=== PATIENT | female | born 1980 | race Caucasian/White ===

== ENCOUNTER 2019-05-09 17:50 | Emergency (ER) | payer MEDICAID, OTHER ==
[~2019-05-09] VITALS: Ht 170.2 cm; Wt 68.0 kg
--- NOTE | 2019-05-09 18:18 | ED Abdominal Pain ---
General Chief Complaint: Trauma-Non Activation Stated Complaint: LOW ABD/ GROIN PAIN, HEADACHE Source of Information: Patient, RN Notes Reviewed Exam Limitations: No Limitations History of Present Illness Date Seen by Provider: May 09, 2019 Time Seen by Provider: 18:18 Initial Comments Patient presents c/ c/o worsening left groin pain and swelling p/ tripping and falling on 05/05/19. States she landed on a printer in her left groin area. Pain worse c/ movement, palpation, & walking. Has now developed some bruising and fullness in the area now as well. Only other injury is to her left great toe that is painful. Timing/Duration: 4-5 Days Severity/Quality: Moderate (5/10), Aching Location: Other (left groin) Radiation: No Radiation Activities at Onset: Other (fall) Modifying Factors: Worsens With Movement, Worsens With Palpation; Improves With Resting Associated Symptoms: Denies Symptoms (x/ as noted. ), Headache, Swelling/Mass in Abdomen (left groin) Allergies and Home Medications Allergies Coded Allergies: Iodinated Contrast- Oral and IV Dye (Verified Allergy, Severe, angioedema, 05/09/19) Penicillins (Verified Allergy, Unknown, 05/09/19) erythromycin base (Verified Adverse Reaction, Intermediate, nausea and vomiting, 05/09/19) NSAIDS (Non-Steroidal Anti-Inflamma (Verified Adverse Reaction, Unknown, GI bleed, 05/09/19) Home Medications Methylprednisolone 4 Mg Tab.ds.pk, 4 MG PO UD PER DOSE PACK INSTRUCTIONS Prescribed by: SISI SEGURA on 05/09/19 2100 Patient Home Medication List Home Medication List Reviewed: Yes Review of Systems Review of Systems Constitutional: see HPI Genitourinary: See HPI, Pain (& bruising left groin area) Musculoskeletal: see HPI, other (left toe pain) All Other Systems Reviewed Negative Unless Noted: Yes (Negative excepted noted.) Past Okmymmg-Yfuerb-Wfowls Hx Patient Social History Recent Foreign Travel: No Contact w/Someone Who Travel: No Physical Exam Vital Signs Vital Signs - First Documented 05/09/19 18:10 Temp 98.4 Pulse 114 Resp 20 B/P (MAP) 138/94 (109) Pulse Ox 100 O2 Delivery Room Air Capillary Refill : Height/Weight/BMI Height: '" Weight: lbs. oz. kg; BMI Method: General Appearance: WD/WN, no apparent distress Respiratory: no respiratory distress Cardiovascular: tachycardia Rectal: deferred Genital/Rectal: tenderness (left groin/Mons pubis) Extremities: other (tenderness/ pain left great toe although no obvious brusing, deformity, or swelling.) Neurologic/Psychiatric: no motor/sensory deficits, alert, normal mood/affect, oriented x 3 Skin: warm/dry, ecchymosis (left groin extending to her left Mons pubis.) Progress/Results/Core Measures Results/Orders Lab Results Laboratory Tests Test 05/09/19 18:10 Range/Units Urine Color YELLOW Urine Clarity CLEAR Urine pH 6.5 5-9 Urine Specific [place] <1.005 1.016-1.022 Urine Protein NEGATIVE NEGATIVE Urine Glucose (UA) NEGATIVE NEGATIVE Urine Ketones NEGATIVE NEGATIVE Urine Nitrite NEGATIVE NEGATIVE Urine Bilirubin NEGATIVE NEGATIVE Urine Urobilinogen 0.2 NORMAL MG/DL Urine Leukocyte Esterase NEGATIVE NEGATIVE Urine RBC (Auto) TRACE H NEGATIVE Urine RBC RARE /HPF Urine WBC NONE /HPF Urine Squamous Epithelial Cells 2-5 /HPF Urine Crystals NONE /LPF Urine Bacteria FEW H /HPF Urine Casts NONE /LPF Urine Mucus NEGATIVE /LPF Urine Culture Indicated NO Urine Test NEGATIVE NEGATIVE My Orders Orders - SISI SEGURA DO Ua Culture If Indicated (05/09/19 18:00) Hcg,Qualitative Urine (05/09/19 18:00) Ct Pelvis Wo (05/09/19 18:35) Toe(S) (05/09/19 18:35) Dexamethasone Injection (Decadron Inject (05/09/19 21:15) Vital Signs/I&O 05/09/19 05/09/19 18:10 21:09 Temp 98.4 98.9 Pulse 114 89 Resp 20 18 B/P (MAP) 138/94 (109) 126/73 (90) Pulse Ox 100 99 O2 Delivery Room Air Room Air Diagnostic Imaging Diagonstic Imaging: Xray, CT Plain Films/CT/US/NM/MRI: pelvis ((+) contusion), other (great toe is unremarkable) Departure Impression Primary Impression: Contusion of left groin Additional Impressions: Sprain of left great toe Fall Disposition: 01 HOME, SELF-CARE Condition: Stable Departure-Patient Inst. Decision time for Depature: 20:58 Referrals: [facility] [place] Patient Instructions: Contusion (DC), Toe Injury (DC) Add. Discharge Instructions: RECOMMEND 1000 mg OF TYLENOL EVERY 6 HOURS NEEDED FOR PAIN. DO NOT EXCEED 4000 mg OF TYLENOL IN A 24 HOUR PERIOD. All discharge instructions reviewed with patient and/or family. Voiced understanding. Scripts Methylprednisolone (Medrol) 4 Mg Tab.ds.pk 4 MG PO UD for 6 Days, #21 PKG PER DOSE PACK INSTRUCTIONS Prov: SISI SEGURA DO 05/09/19 SISI SEGURA DO May 09, 2019 18:18
[2019-05-09 18:22] LABS: CLARITY,URINE CLEAR; COLOR,URINE YELLOW; GLUCOSE, URINE (UA) NEGATIVE (NEGATIVE); PH,URINE 6.5 (5-9); PROTEIN,URINE NEGATIVE (NEGATIVE)
[2019-05-09 18:23] LABS: BACTERIA,URINE FEW /HPF; BILIRUBIN,URINE NEGATIVE (NEGATIVE); HCG,QUALITATIVE URINE NEGATIVE (NEGATIVE); KETONES,URINE NEGATIVE (NEGATIVE); LEUKOCYTE ESTERASE ,URINE NEGATIVE (NEGATIVE); NITRITE,URINE NEGATIVE (NEGATIVE); RBC,URINE RARE /HPF; UROBILINOGEN,URINE 0.2 MG/DL (NORMAL)
--- NOTE | 2019-05-09 20:47 | Diagnostic Imaging Report ---
EXAMINATION: CT pelvis without contrast dated 05/09/2019. TECHNIQUE: Multiple contiguous axial images were obtained through the pelvis without the use of intravenous contrast. Sagittal and coronal reformations were performed. Auto Exposure Controls were utilized during the CT exam to meet ALARA standards for radiation dose reduction. INDICATION: Fell five days ago, having pain in the pelvis. FINDINGS: There is diffuse abnormal fat stranding along the left groin but incompletely imaged. This could be due to contusion given the history of fall. No measurable hematoma is appreciated. The visualized intrapelvic structures are unremarkable. Appendix is unremarkable. The osseous structures demonstrate degenerative findings with no acute osseous abnormalities, fractures, or dislocations. However, this is a non-bone algorithm examination. Visualized lower lumbosacral spine is grossly unremarkable. IMPRESSION: 1. Nonspecific and incompletely imaged fat stranding within the anterior soft tissues of the left groin, perhaps due to contusion. An inflammatory or infectious etiology such as cellulitis is also in the differential; correlate with physical examination. 2. No obvious fracture is appreciated on this non-bone algorithm evaluation. If there is concern for fracture, correlation with radiographs and specific imaging of the osseous structures could be performed as clinically indicated. 3. Other findings as above. Dictated by: Dictated on workstation # [id number]
[2019-05-09] MEDS ORDERED: DEXAMETHASONE 4 MG TAB (DECADRON) PO STA (20:56)
[2019-05-09] MEDS ORDERED: METH4TAB PO (21:00)
[2019-05-09 21:09] VITALS: BP 126/73
[2019-05-09] MEDS ORDERED: DEXAMETHASONE 10 MG/ML (DECADRON) 1 ML VIAL IM ONE (21:15)
--- NOTE | 2019-05-09 22:13 | Diagnostic Imaging Report ---
EXAMINATION: Left great toe radiographs, 3 views. COMPARISON: None. HISTORY: 39-year-old female, fall 5 days ago. Left great toe pain. FINDINGS: There is an os navicularis. There is no identified acute fracture. There is no radiopaque foreign body. Joint spaces are well-preserved. IMPRESSION: 1. No identified acute bony abnormality of the left great toe. Dictated by: Dictated on workstation # [id number]
== END 2019-05-09 21:15 | disposition home or self-care (01) ==
LOC: ER FS 17:52
DX: S93.502A Unspecified sprain of left great toe, initial encounter (principal); S30.1XXA Contusion of abdominal wall, initial encounter; Z91.041 Radiographic dye allergy status; Z88.0 Allergy status to penicillin; Z88.1 Allergy status to other antibiotic agents; Z88.6 Allergy status to analgesic agent; W01.0XXA Fall on same level from slipping, tripping and stumbling without subsequent striking against object, initial encounter
CPT/HCPCS: 72192; 73660; 81000; 84703

== ENCOUNTER 2019-07-30 15:02 | Emergency (ER) | payer MEDICAID ==
[~2019-07-30] VITALS: Ht 170.1 cm; Wt 76.0 kg
[~2019-07-30 15:02] MED LIST: METH4TAB PO
--- NOTE | 2019-07-30 15:39 | ED Abdominal Pain ---
General Chief Complaint: Abdominal/GI Problems Stated Complaint: STOMACH PAIN Source of Information: Patient Exam Limitations: No Limitations History of Present Illness Date Seen by Provider: Jul 30, 2019 Time Seen by Provider: 15:27 Initial Comments Patient presents with 5 months of intermittent mid abdominal pain. Pain is located all over and of different quality in each quadrant. States sometimes burning in her upper abdomen, burning in her left side and pressure in her right lower abdomen as well as pressure in her lower mid abdomen. States normally she's been constipated her whole life, but a few months ago she started to have bowel movements for times a day. Denies any weight loss, has actually had we ight gain. States he used to see a control clerk subassembly for her chronic constipation and was diagnosed with "colitis" at one point for which she was prescribed Bentyl and Flagyl. History of chronic headaches and states she does not have a primary care doctor, but just gets refills from Dr. Nj. Rather evasive when continued to question on her medication and where she gets them, she repeatedly just states she does not have a primary care doctor. Also, states she has a Hx of "gallbladder problems with a HIDA scan showing slow function". Allergies and Home Medications Allergies Coded Allergies: Iodinated Contrast- Oral and IV Dye (Verified Allergy, Severe, angioedema, 05/09/19) Penicillins (Verified Allergy, Unknown, 05/09/19) erythromycin base (Verified Adverse Reaction, Intermediate, nausea and vomiting, 05/09/19) NSAIDS (Non-Steroidal Anti-Inflamma (Verified Adverse Reaction, Unknown, GI bleed, 05/09/19) Home Medications Cholecalciferol (Vitamin D3) 50,000 Unit Capsule, 50,000 UNIT PO weekly, (Reported) Hyoscyamine Sulfate 0.125 Mg Tab.subl, 0.125 MG SL Q6H Prescribed by: SENA ROYAL on 07/30/19 1620 Methylprednisolone 4 Mg Tab.ds.pk, 4 MG PO UD PER DOSE PACK INSTRUCTIONS Prescribed by: SISI SEGURA on 05/09/192099 Metronidazole 500 Mg Tablet, 500 MG PO BID Prescribed by: SENA ROYAL on 07/30/19 1634 Patient Home Medication List Home Medication List Reviewed: Yes Review of Systems Review of Systems Constitutional: No chills, No diaphoresis, No dizziness, No fever, No malaise, No weakness; weight gain; No weight loss Respiratory: Denies Cough, Denies Orthopnea, Denies Shortness of Air, Denies SOA With Exertion, Denies SOA at Rest, Denies Stridor, Denies Wheezing Cardiovascular: Denies Chest Pain, Denies Edema, Denies Irregular Heart Rate, Denies Palpitations, Denies Syncope Gastrointestinal: See HPI, Abdominal Pain; Denies Blood Streaked Stools; Constipated, Diarrhea; Denies Difficulty Swallowing; Nausea (chronic, states she takes zofran daily for years); Denies Poor Appetite, Denies Poor Fluid Intake, Denies Rectal Bleeding, Denies Vomiting Genitourinary: Denies Burning, Denies Discharge, Denies Frequency; Flank Pain ( b/l) Musculoskeletal: No back pain, No joint pain Past Yjlshfb-Bjivab-Ulzmiw Hx Patient Social History Alcohol Use: Denies Use Recreational Drug Use: No Smoking Status: Current Everyday Smoker Type Used: Cigarettes 2nd Hand Smoke Exposure: No Recent Hopitalizations: No Physical Abuse: No Sexual Abuse: No Mistreated: No Fear: No Seasonal Allergies Seasonal Allergies: No Past Medical History Surgeries: Yes (right achilles tendon repair) Hysterectomy Respiratory: Yes (Pulmonary AVM) Cardiac: Yes Hypertension Neurological: No Genitourinary: No Gastrointestinal: Yes (ALIE, bleeding stomach ulcers) Musculoskeletal: No Endocrine: Yes (Patient states she is undergoing a workup for Lupus) HEENT: No Cancer: No Psychosocial: No Integumentary: No Physical Exam Vital Signs Vital Signs - First Documented 07/30/19 15:05 Temp 37.4 Pulse 114 Resp 20 B/P (MAP) 159/100 (119) Pulse Ox 98 O2 Delivery Room Air Capillary Refill : Height/Weight/BMI Height: 5'7.00" Weight: 150lbs. oz. [id number]; BMI Method:Stated General Appearance: WD/WN, no apparent distress Respiratory: chest non-tender, lungs clear, normal breath sounds, no respiratory distress, no accessory muscle use Cardiovascular: normal peripheral pulses, regular rate, rhythm, no edema, no gallop, no JVD, no murmur Gastrointestinal: normal bowel sounds, non tender, soft, no organomegaly, no pulsatile mass Back: normal inspection, no CVA tenderness Neurologic/Psychiatric: no motor/sensory deficits, alert, oriented x 3 Skin: normal color, warm/dry Progress/Results/Core Measures Results/Orders Lab Results Laboratory Tests Test 07/30/19 15:05 07/30/19 15:35 Range/Units Urine Color YELLOW Urine Clarity CLEAR Urine pH 7.0 5-9 Urine Specific [place] 1.015 L 1.016-1.022 Urine Protein NEGATIVE NEGATIVE Urine Glucose (UA) NEGATIVE NEGATIVE Urine Ketones NEGATIVE NEGATIVE Urine Nitrite NEGATIVE NEGATIVE Urine Bilirubin NEGATIVE NEGATIVE Urine Urobilinogen 0.2 NORMAL MG/DL Urine Leukocyte Esterase NEGATIVE NEGATIVE Urine RBC (Auto) NEGATIVE NEGATIVE Urine RBC RARE /HPF Urine WBC RARE /HPF Urine Squamous Epithelial Cells 0-2 /HPF Urine Crystals PRESENT H /LPF Urine Amorphous Sediment MOD LAVINIA URATES H /LPF Urine Bacteria NEGATIVE /HPF Urine Casts NONE /LPF Urine Mucus SMALL H /LPF Urine Culture Indicated NO White Blood Count 9.0 4.3-11.0 10^3/uL Red Blood Count 4.91 4.35-5.85 10^6/uL Hemoglobin 14.5 11.5-16.0 G/DL Hematocrit 43 35-52 % Mean Corpuscular Volume 88 80-99 FL Mean Corpuscular Hemoglobin 30 25-34 PG Mean Corpuscular Hemoglobin Concent 34 32-36 G/DL Red Cell Distribution Width 13.8 10.0-14.5 % Platelet Count 273 130-400 10^3/uL Mean Platelet Volume 9.5 7.4-10.4 FL Neutrophils (%) (Auto) 67 42-75 % Lymphocytes (%) (Auto) 24 12-44 % Monocytes (%) (Auto) 6 0-12 % Eosinophils (%) (Auto) 2 0-10 % Basophils (%) (Auto) 1 0-10 % Neutrophils # (Auto) 6.0 1.8-7.8 X 10^3 Lymphocytes # (Auto) 2.2 1.0-4.0 X 10^3 Monocytes # (Auto) 0.6 0.0-1.0 X 10^3 Eosinophils # (Auto) 0.2 0.0-0.3 10^3/uL Basophils # (Auto) 0.1 0.0-0.1 10^3/uL Sodium Level 143 135-145 MMOL/L Potassium Level 3.8 3.6-5.0 MMOL/L Chloride Level 103 98-107 MMOL/L Carbon Dioxide Level 27 21-32 MMOL/L Anion Gap 13 5-14 MMOL/L Blood Urea Nitrogen 14 7-18 MG/DL Creatinine 0.97 0.60-1.30 MG/DL Estimat Glomerular Filtration Rate > 60 BUN/Creatinine Ratio 14 Glucose Level 141 H 70-105 MG/DL Calcium Level 9.4 8.5-10.1 MG/DL Corrected Calcium 9.2 8.5-10.1 MG/DL Total Bilirubin 0.4 0.1-1.0 MG/DL Aspartate Amino Transf (AST/SGOT) 19 5-34 U/L Alanine Aminotransferase (ALT/SGPT) 11 0-55 U/L Alkaline Phosphatase 75 40-136 U/L Total Protein 6.7 6.4-8.2 GM/DL Albumin 4.3 3.2-4.5 GM/DL Lipase 25 8-78 U/L My Orders Orders - ROVENSTSENA WYNN DO Ed Iv/Invasive Line Start (07/30/19 15:33) Cbc With Automated Diff (07/30/19 15:33) Comprehensive Metabolic Panel (07/30/19 15:33) Lipase (07/30/19 15:33) Urinalysis (07/30/19 15:33) Ns Iv 1000 Ml (Sodium Chloride 0.9%) (07/30/19 15:45) Ct Abdomen/Pelvis Wo (07/30/19 15:33) Vital Signs/I&O 07/30/19 15:05 Temp 37.4 Pulse 114 Resp 20 B/P (MAP) 159/100 (119) Pulse Ox 98 O2 Delivery Room Air Departure Impression Primary Impression: Abdominal pain Qualified Codes: R10.84 - Generalized abdominal pain Disposition: HOME, SELF-CARE Condition: Stable Departure-Patient Inst. Decision time for Depature: 16:30 Referrals: NO,LOCAL PHYSICIAN (PCP/Family) Primary Care Physician Patient Instructions: Irritable Bowel Syndrome (DC), Colitis Scripts Metronidazole (Flagyl) 500 Mg Tablet 500 MG PO BID for 14 Days, TAB Prov: AARTISTSENA WYNN DO 07/30/19 Hyoscyamine Sulfate (Levsin-Sl) 0.125 Mg Tab.subl 0.125 MG SL Q6H for Cramps, #20 TAB Prov: AARTISTINESENA L 07/30/19 MEETAVENSTINEGILBERTOSENA L Jul 30, 2019 15:39
[2019-07-30] MEDS ORDERED: NS IV 1000 ML 1,000 ML IV SCH (15:45)
[2019-07-30] MEDS ORDERED: ONDA8TAB6 PO (15:46)
[2019-07-30] MEDS ORDERED: Sumatriptan (15:46)
[2019-07-30] MEDS ORDERED: CHOL500049 PO (15:46)
[2019-07-30 15:51] LABS: BASOPHILS # (AUTO) 0.1 10^3/uL (0.0-0.1); BASOPHILS % (AUTO) 1 % (0-10); EOSINOPHILS # (AUTO) 0.2 10^3/uL (0.0-0.3); EOSINOPHILS % (AUTO) 2 % (0-10); HEMATOCRIT 43 % (35-52); HEMOGLOBIN 14.5 G/DL (11.5-16.0); LYMPHOCYTES # (AUTO) 2.2 X 10^3 (1.0-4.0); LYMPHOCYTES % (AUTO) 24 % (12-44); MEAN CORPUSCULAR HEMOGLOBIN 30 PG (25-34); MEAN CORPUSCULAR HGB CONC 34 G/DL (32-36); MEAN CORPUSCULAR VOLUME 88 FL (80-99); MEAN PLATELET VOLUME 9.5 FL (7.4-10.4); MONOCYTES # (AUTO) 0.6 X 10^3 (0.0-1.0); MONOCYTES % (AUTO) 6 % (0-12); NEUTROPHILS % (AUTO) 67 % (42-75); PLATELET COUNT 273 10^3/uL (130-400); RED CELL DISTRIBUTION WIDTH 13.8 % (10.0-14.5)
[2019-07-30 16:01] LABS: COLOR,URINE YELLOW
[2019-07-30 16:02] LABS: BILIRUBIN,URINE NEGATIVE (NEGATIVE); CLARITY,URINE CLEAR; GLUCOSE, URINE (UA) NEGATIVE (NEGATIVE); KETONES,URINE NEGATIVE (NEGATIVE); LEUKOCYTE ESTERASE ,URINE NEGATIVE (NEGATIVE); NITRITE,URINE NEGATIVE (NEGATIVE); PROTEIN,URINE NEGATIVE (NEGATIVE)
[2019-07-30 16:07] LABS: BACTERIA,URINE NEGATIVE /HPF; RBC,URINE RARE /HPF; WBC,URINE RARE /HPF
[2019-07-30 16:08] LABS: AMORPHOUS SEDIMENT,UR MOD AMOR URATES /LPF; SQUAMOUS EPITHELIAL CELL,UR 0-2 /HPF
[2019-07-30 16:10] LABS: POTASSIUM 3.8 MMOL/L (3.6-5.0); SODIUM 143 MMOL/L (135-145)
[2019-07-30 16:11] LABS: ALANINE AMINOTRANSFERASE 11 U/L (0-55); ALBUMIN 4.3 GM/DL (3.2-4.5); ALKALINE PHOSPHATASE 75 U/L (40-136); BILIRUBIN,TOTAL 0.4 MG/DL (0.1-1.0); BUN/CREATININE RATIO 14; CALCIUM 9.4 MG/DL (8.5-10.1); CARBON DIOXIDE 27 MMOL/L (21-32); CHLORIDE 103 MMOL/L (98-107); CREATININE SERUM 0.97 MG/DL (0.60-1.30); GFR ESTIMATED > 60; GLUCOSE 141 MG/DL (70-105); LIPASE 25 U/L (8-78); TOTAL PROTEIN 6.7 GM/DL (6.4-8.2)
--- NOTE | 2019-07-30 16:17 | Diagnostic Imaging Report ---
PROCEDURE: CT abdomen and pelvis without contrast. TECHNIQUE: Multiple contiguous axial images were obtained through the abdomen and pelvis without the use of intravenous contrast. Auto Exposure Controls were utilized during the CT exam to meet ALARA standards for radiation dose reduction. INDICATION: Abdominal pain. Blood in the stools. FINDINGS: Liver, gallbladder and bile ducts are normal. The spleen, pancreas and adrenals are normal. The left kidney and ureter are normal. There is a 4 mm nonobstructing calculus in the right kidney. The right ureter is normal. The bladder is normal. There is no pelvic mass. The appendix is normal. There is mild circumferential edema of the descending colon with minimal pericolonic edema which is suggestive of a colitis. There is no obstruction or perforation. No diverticuli are evident. The small bowel is within normal limits. IMPRESSION: There is some mild edema of the descending colon which may be secondary to colitis. There is a nonobstructing calculus in the right kidney. No obstruction, perforation or abscess is evident. Dictated by: Dictated on workstation # [id number]
[2019-07-30] MEDS ORDERED: HYOS0.1283 SL (16:20)
[2019-07-30] MEDS ORDERED: METR500T PO (16:34)
[2019-07-30 16:58] VITALS: BP 147/87
== END 2019-07-30 16:58 | disposition home or self-care (01) ==
LOC: EDUNIT# 15:02 → ER FS 15:04
DX: R10.9 Unspecified abdominal pain (principal); I10 Essential (primary) hypertension; F17.210 Nicotine dependence, cigarettes, uncomplicated; Z88.0 Allergy status to penicillin; Z91.041 Radiographic dye allergy status; Z88.6 Allergy status to analgesic agent; Z88.1 Allergy status to other antibiotic agents; Z90.710 Acquired absence of both cervix and uterus
CPT/HCPCS: 36415; 74176; 80053; 81000; 83690; 85025

== ENCOUNTER 2020-05-21 18:14 | Emergency (ER) | payer MEDICAID ==
[~2020-05-21] VITALS: Ht 170.1 cm; Wt 78.1 kg
[~2020-05-21 18:14] MED LIST changes: +CHOL500049 PO; +HYOS0.1283 SL; +METR500T PO; +ONDA8TAB6 PO; +Sumatriptan
--- NOTE | 2020-05-21 18:24 | ED Neurological Problem ---
General Stated Complaint: FALL,EAR PAIN,HEADACHE History of Present Illness Date Seen by Provider: May 21, 2020 Time Seen by Provider: 18:19 Initial Comments 40-year-old female presents with a migraine. She reports she's had a migraine for 6 days. She's had "ear pain" for longer than that thinks may she has an infected tooth. Patient also reports that 5 days ago she had felt was showing her migraines but she did not hit her head. The pain seems to be a little bit different than her normal migraines. That normally is on the left side this pain is more on her right behind her ear. She feels a she has some fevers. She does not have any cough or other systemic complaints. She for she took 3 of her migraine medicines over the last 6 days. Allergies and Home Medications Allergies Coded Allergies: Iodinated Contrast- Oral and IV Dye (Verified Allergy, Severe, angioedema, 05/09/19) Penicillins (Verified Allergy, Unknown, 05/09/19) erythromycin base (Verified Adverse Reaction, Intermediate, nausea and vomiting, 05/09/19) NSAIDS (Non-Steroidal Anti-Inflamma (Verified Adverse Reaction, Unknown, GI bleed, 05/09/19) Home Medications Cholecalciferol (Vitamin D3) 50,000 Unit Capsule, 50,000 UNIT PO weekly, (Reported) Hyoscyamine Sulfate 0.125 Mg Tab.subl, 0.125 MG SL Q6H Prescribed by: SENA ROYAL on 07/30/19 1620 Methylprednisolone 4 Mg Tab.ds.pk, 4 MG PO UD PER DOSE PACK INSTRUCTIONS Prescribed by: SISI SEGURA on 05/09/19 2100 Metronidazole 500 Mg Tablet, 500 MG PO BID Prescribed by: SENA ROYAL on 07/30/19 1634 Patient Home Medication List Home Medication List Reviewed: Yes Review of Systems Review of Systems Constitutional: see HPI; No malaise Eyes: Denies Blindness, Denies Blurred Vision Ears, Nose, Mouth, Throat: ear pain Respiratory: No cough, No short of breath Cardiovascular: No chest pain Gastrointestinal: No abdominal pain; nausea Genitourinary: no symptoms reported Musculoskeletal: no symptoms reported Skin: no symptoms reported Psychiatric/Neurological: Headache Endocrine: No Symptoms Reported Hematologic/Lymphatic: No Symptoms Reported Past Lnjkzey-Svkofh-Krlaak Hx Past Med/Social Hx: Reviewed Nursing Past Med/Soc Hx Patient Social History Type Used: Cigarettes 2nd Hand Smoke Exposure: No Recent Foreign Travel: No Contact w/Someone Who Travel: No Recent Hopitalizations: No Seasonal Allergies Seasonal Allergies: No Past Medical History Surgeries: Yes (right achilles tendon repair) Hysterectomy Respiratory: Yes (Pulmonary AVM) Cardiac: Yes Hypertension 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 oz. 68.229641ir; 26.00 BMI Method:Stated General Appearance: no apparent distress, mild distress HEENT: PERRL/EOMI, normal ENT inspection, TMs normal, pharynx normal Neck: non-tender, full range of motion Respiratory: chest non-tender, lungs clear, normal breath sounds Cardiovascular: normal peripheral pulses, regular rate, rhythm Gastrointestinal: non tender, soft Extremities: normal range of motion Neurologic/Psychiatric: echo technician II-XII nml as tested, no motor/sensory deficits, alert, normal mood/affect, oriented x 3 Crainal Nerves: normal hearing, normal speech Motor/Sensory: no motor deficit, no sensory deficit Skin: normal color, warm/dry Lymphatic: no adenopathy Progress/Results/Core Measures Results/Orders Lab Results Laboratory Tests Test 05/21/20 18:30 Range/Units White Blood Count 11.3 H 4.3-11.0 10^3/uL Red Blood Count 5.30 4.35-5.85 10^6/uL Hemoglobin 15.3 11.5-16.0 G/DL Hematocrit 45 35-52 % Mean Corpuscular Volume 86 80-99 FL Mean Corpuscular Hemoglobin 29 25-34 PG Mean Corpuscular Hemoglobin Concent 34 32-36 G/DL Red Cell Distribution Width 13.4 10.0-14.5 % Platelet Count 301 130-400 10^3/uL Mean Platelet Volume 10.1 7.4-10.4 FL Neutrophils (%) (Auto) 74 42-75 % Lymphocytes (%) (Auto) 18 12-44 % Monocytes (%) (Auto) 5 0-12 % Eosinophils (%) (Auto) 2 0-10 % Basophils (%) (Auto) 1 0-10 % Neutrophils # (Auto) 8.3 H 1.8-7.8 X 10^3 Lymphocytes # (Auto) 2.0 1.0-4.0 X 10^3 Monocytes # (Auto) 0.5 0.0-1.0 X 10^3 Eosinophils # (Auto) 0.3 0.0-0.3 10^3/uL Basophils # (Auto) 0.1 0.0-0.1 10^3/uL My Orders Orders - MARLON VARGAS DO Ct Head Wo-R/O Stroke (05/21/20 18:29) Basic Metabolic Panel (05/21/20 18:29) Cbc With Automated Diff (05/21/20 18:29) Crp Fs (05/21/20 18:29) Ketorolac Injection (Toradol Injection) (05/21/20 18:29) Ed Iv/Invasive Line Start (05/21/20 18:29) Ns Iv 1000 Ml (Sodium Chloride 0.9%) (05/21/20 18:29) Metoclopramide Injection (Reglan Injecti (05/21/20 18:29) Ed Iv/Invasive Line Start (05/21/20 18:29) Vital Signs/I&O 05/21/20 18:15 Temp 37.0 Pulse 104 Resp 16 B/P (MAP) 188/89 (122) Pulse Ox 100 O2 Delivery Room Air Progress Progress Note : Time: 19:08 Progress Note Patient's symptoms improved with treatment. She had a negative CT of her head. She does have an elevated white count with concerns for possible dental infection. We'll go ahead and treat her with amoxicillin. She does have a penicillin allergy listed . reports was a rash when she was a child and has taken amoxicillin since then. Patient is stable and will be discharged. Diagnostic Imaging Diagonstic Imaging: CT Plain Films/CT/US/NM/MRI: head Comments [facility]. [place], [place] NAME: ATIYA STEPHENS [facility] REC#: [id number] PT STATUS: REG ER : 1980 PHYSICIAN: MARLON VARGAS DO ADMIT DATE: 05/21/20/ER FS Signed Date of Exam:05/21/20 CT HEAD WO-R/O STROKE PROCEDURE: CT head wo r/o stroke. TECHNIQUE: Multiple contiguous axial images were obtained through the brain without the use of intravenous contrast. Auto Exposure Controls were utilized during the CT exam to meet ALARA standards for radiation dose reduction. INDICATION: Fell about a week ago has had headache and blurry vision since. COMPARISON STUDY: None FINDINGS: Noncontrast CT scan the head demonstrates mass effect midline shift hemorrhage or extra-axial fluid collections. The sood-white matter differentiation is normal. Ventricles cortical sulci and basilar cisterns appear normal. The osseous structures are normal. IMPRESSION: Normal CT scan the head. Departure Impression Primary Impression: Migraine Qualified Codes: G43.911 - Migraine, unspecified, intractable, with status migrainosus Additional Impression: Dental infection Disposition: 01 HOME, SELF-CARE Condition: Stable Departure-Patient Inst. Referrals: NO,LOCAL PHYSICIAN (PCP/Family) Primary Care Physician Patient Instructions: Migraines (DC), Dental Pain Scripts Amoxicillin (Amoxicillin) 500 Mg Capsule 500 MG PO TID, #21 CAP 0 Refills Prov: MARLON VARGAS DO 05/21/20 MARLON VARGAS DO May 21, 2020 18:23
[2020-05-21] MEDS ORDERED: NS IV 1000 ML 1,000 ML IV SCH (18:29)
[2020-05-21] MEDS ORDERED: METOCLOPRAMIDE INJ 10 MG/2 ML (REGLAN) IVP STA (18:29)
[2020-05-21] MEDS ORDERED: KETOROLAC 30 MG/ML VIAL IVP STA (18:29)
[2020-05-21 18:44] LABS: HEMATOCRIT 45 % (35-52); HEMOGLOBIN 15.3 G/DL (11.5-16.0); LYMPHOCYTES % (AUTO) 18 % (12-44); MEAN CORPUSCULAR HEMOGLOBIN 29 PG (25-34); MEAN CORPUSCULAR HGB CONC 34 G/DL (32-36); MEAN CORPUSCULAR VOLUME 86 FL (80-99); MEAN PLATELET VOLUME 10.1 FL (7.4-10.4); NEUTROPHILS % (AUTO) 74 % (42-75); PLATELET COUNT 301 10^3/uL (130-400); RED CELL DISTRIBUTION WIDTH 13.4 % (10.0-14.5); WHITE BLOOD COUNT 11.3 10^3/uL (4.3-11.0)
[2020-05-21 18:45] LABS: BASOPHILS # (AUTO) 0.1 10^3/uL (0.0-0.1); BASOPHILS % (AUTO) 1 % (0-10); EOSINOPHILS # (AUTO) 0.3 10^3/uL (0.0-0.3); EOSINOPHILS % (AUTO) 2 % (0-10); MONOCYTES # (AUTO) 0.5 X 10^3 (0.0-1.0); MONOCYTES % (AUTO) 5 % (0-12); NEUTROPHILS # (AUTO) 8.3 X 10^3 (1.8-7.8)
--- NOTE | 2020-05-21 18:49 | Diagnostic Imaging Report ---
PROCEDURE: CT head wo r/o stroke. TECHNIQUE: Multiple contiguous axial images were obtained through the brain without the use of intravenous contrast. Auto Exposure Controls were utilized during the CT exam to meet ALARA standards for radiation dose reduction. INDICATION: Fell about a week ago has had headache and blurry vision since. COMPARISON STUDY: None FINDINGS: Noncontrast CT scan the head demonstrates mass effect midline shift hemorrhage or extra-axial fluid collections. The sood-white matter differentiation is normal. Ventricles cortical sulci and basilar cisterns appear normal. The osseous structures are normal. IMPRESSION: Normal CT scan the head. Dictated by: Dictated on workstation # [id number]
[2020-05-21 19:11] LABS: SODIUM 142 MMOL/L (135-145)
[2020-05-21] MEDS ORDERED: AMOX500C2 PO (19:11)
[2020-05-21 19:12] LABS: BUN/CREATININE RATIO 14; CALCIUM 9.5 MG/DL (8.5-10.1); CARBON DIOXIDE 24 MMOL/L (21-32); CHLORIDE 103 MMOL/L (98-107); GFR ESTIMATED > 60; GLUCOSE 123 MG/DL (70-105)
[2020-05-21 19:14] LABS: POTASSIUM 4.3 MMOL/L (3.6-5.0)
[2020-05-21 19:15] VITALS: BP 148/91
--- OUTSIDE RECORDS SUMMARY | 2020-05-21 19:19 | XMS REPORT | Continuity of Care Document ---
Author Author [facility] Organization [employer] Address Unknown Phone Unavailable Allergies Active Description Code Type Severity Reaction Onset Reported/Identified Relationship to Patient Clinical Status Yes Iodinated Contrast Media [id number] Drug Allergy Severe angioedema 05/09/20 19 Yes Iodinated Contrast- Oral and IV Dye [id number] Drug Allergy Severe angioedema 05/09/2019 Yes erythromycin base [id number] Drug Allergy Moderate nausea and vomi 02/2019 Yes NSAIDS (Non-Steroidal Anti-Inflamma [id number] Drug Allergy Unknown GI bleed 05/09/2019 Yes Penicillins [id number] Drug Aller gy Unknown N/A 05/09/2019 Medications There is no data. Problems Date Dx Coded Attending Type Code Diagnosis Diagnosed By 05/14/2019 SISI SEGURA DO, Ot S30.1XXA CONTUSION OF ABDOMINAL WALL, INITIAL ENC 05/14/2019 SISI SEGURA DO, Ot S93.502A UNSPECIFIED SPRAIN OF LEFT GREAT TOE, IN 05/14/2019 SISI SEGURA DO, Ot S99.922A UNSPECIFIED INJURY OF LEFT FOOT, INITIAL 05/14/2019 SISI SEGURA DO, Ot W01.0XXA FALL SAME LEV FROM SLIP/TRIP W/O STRIKE 05/14/2019 SISI SEGURA DO, Ot Z88.0 ALLERGY STATUS TO PENICILLIN 05/14/2019 SISI SEGURA DO Ot Z88.1 ALLERGY STATUS TO OTHER ANTIBIOTIC AGENT 05/14/2019 SISI SEGURA DO, Ot Z88.6 ALLERGY STATUS TO ANALGESIC AGENT STATUS 05/14/2019 SISI SEGURA DO, Ot Z91.041 RADIOGRAPHIC DYE ALLERGY STATUS 08/03/2019 SENA ROYAL DO Ot F17.210 NICOTINE DEPENDENCE, CIGARETTES, UNCOMPL 08/03/2019 AARTISTSENA WYNN DO Ot I10 ESSENTIAL (PRIMARY) HYPERTENSION 08/03/2019 AARTISTSENA WYNN DO Ot R10.9 UNSPECIFIED ABDOMINAL PAIN 08/03/2019 GILBERTO ROYAL DOEN L Ot Z88.0 ALLERGY STATUS TO PENICILLIN 08/03/2019 ROVENSTINE DO, SENA L Ot Z88.1 ALLERGY STATUS TO OTHER ANTIBIOTIC AGENT 08/03/2019 ROVENSTINE DO, SENA L Ot Z88.6 ALLERGY STATUS TO ANALGESIC AGENT STATUS 08/03/2019 ROVENSTINE DO, SENA L Ot Z90.710 ACQUIRED ABSENCE OF BOTH CERVIX AND UTER 08/03/2019 ROVENSTINE DO, SENA L Ot Z91.041 RADIOGRAPHIC DYE ALLERGY STATUS 08/05/2019 ROVENSTINE DO, SENA L Ot F17.210 NICOTINE DEPENDENCE, CIGARETTES, UNCOMPL 08/05/2019 ROVENSTINE DO, SENA L Ot I10 ESSENTIAL (PRIMARY) HYPERTENSION 08/05/2019 ROVENSTINE DO, SENA L Ot R10.9 UNSPECIFIED ABDOMINAL PAIN 08/05/2019 ROVENSTINE DO, SENA L Ot Z88.0 ALLERGY STATUS TO PENICILLIN 08/05/2019 ROVENSTINE DO, SENA L Ot Z88.1 ALLERGY STATUS TO OTHER ANTIBIOTIC AGENT 08/05/2019 ROVENSTINE DO, SENA L Ot Z88.6 ALLERGY STATUS TO ANALGESIC AGENT STATUS 08/05/2019 ROVENSTINE DO, SENA L Ot Z90.710 ACQUIRED ABSENCE OF BOTH CERVIX AND UTER 08/05/2019 ROVENSTINE DO, SENA L Ot Z91.041 RADIOGRAPHIC DYE ALLERGY STATUS Procedures There is no data. Results Test Result Range Complete urinalysis with reflex to cultu re - 05/09/19 18:10 Urine color determination YELLOW NRG Urine clarity determination CLEAR NR G Urine pH measurement by test strip 6.5 5-9 Specific gravity of urine by test strip < 1.016-1.022 Urine protein assay by test strip, semi-quantitative NEGATIVE NEGATIVE Urine glucose detection by automated test strip NE GATIVE NEGATIVE Erythrocytes detection in urine sediment by light micr oscopy TRACE NEGATIVE Urine ketones detection by automated test strip NE GATIVE NEGATIVE Urine nitrite detection by test strip NEGATIVE NEGATIVE Urine total bilirubin detection by test strip NEGA TIVE NEGATIVE Urine urobilinogen measurement by automated test strip (mass/volume) 0.2 mg/dL NORMAL Urine leukocyte esterase detection by dipstick NEG ATIVE NEGATIVE Automated urine sediment erythrocyte cou nt by microscopy (number/high power field) RARE NRG Automated urine sediment leukocyte count by microscopy (number/high power field) NONE NRG Bacteria detection in urine sediment by light microsco py FEW NRG Squamous epithelial cells detection in u rine sediment by light microscopy 2-5 NRG Crystals detection in urine sediment by light microsco py NONE NRG Casts detection in urine sediment by light microscopy NONE NRG Mucus detection in urine sediment by light microscopy NEGATIVE NRG Complete urinalysis with reflex to culture NO NRG Urine beta human chorionic gonadotropin (hCG) measurement - 05/09/19 18:10 Urine beta human chorionic gonadotropin (hCG) measurem ent NEGATIVE NEGATIVE Complete urinalysis with reflex to cultu re - 07/30/19 15:05 Urine color determination YELLOW NRG Urine clarity determination CLEAR NR G Urine pH measurement by test strip 7.0 5-9 Specific gravity of urine by test strip 1.015 1.016-1.022 Urine protein assay by test strip, semi-quantitative NEGATIVE NEGATIVE Urine glucose detection by automated test strip NE GATIVE NEGATIVE Erythrocytes detection in urine sediment by light micr oscopy NEGATIVE NEGATIVE Urine ketones detection by automated test strip NE GATIVE NEGATIVE Urine nitrite detection by test strip NEGATIVE NEGATIVE Urine total bilirubin detection by test strip NEGA TIVE NEGATIVE Urine urobilinogen measurement by automated test strip (mass/volume) 0.2 mg/dL NORMAL Urine leukocyte esterase detection by dipstick NEG ATIVE NEGATIVE Automated urine sediment erythrocyte cou nt by microscopy (number/high power field) RARE NRG Automated urine sediment leukocyte count by microscopy (number/high power field) RARE NRG Bacteria detection in urine sediment by light microsco py NEGATIVE NRG Squamous epithelial cells detection in u rine sediment by light microscopy 0-2 NRG Crystals detection in urine sediment by light microsco py PRESENT NRG Casts detection in urine sediment by light microscopy NONE NRG Mucus detection in urine sediment by light microscopy SMALL NRG Complete urinalysis with reflex to culture NO NRG Amorphous sediment detection in urine sediment by ligh t microscopy MOD LAVINIA URATES NRG Complete blood count (CBC) with automate d white blood cell (WBC) differential - 07/30/19 15:35 Blood leukocytes automated count (number/volume) 9.0 10*3/uL 4.3-11.0 Blood erythrocytes automated count (number/volume) 4.91 10*6/uL 4.35-5.85 Venous blood hemoglobin measurement (mass/volume) 14.5 g/dL 11.5-16.0 Blood hematocrit (volume fraction) 43 % 35-52 Automated erythrocyte mean corpuscular volume 88 [ foz_us] 80-99 Automated erythrocyte mean corpuscular h emoglobin (mass per erythrocyte) 30 pg 25-34 Automated erythrocyte mean corpuscular h emoglobin concentration measurement (mass/volume) 34 g/dL 32-36 Automated erythrocyte distribution width ratio 13. 8 % 10.0- 14.5 Automated blood platelet count (count/volume) 273 10*3/uL 130-400 Automated blood platelet mean volume measurement 9.5 [foz_us] 7.4-10.4 Automated blood neutrophils/100 leukocytes 67 % 42-75 Automated blood lymphocytes/100 leukocytes 24 % 12-44 Blood monocytes/100 leukocytes 6 % 0-12 Automated blood eosinophils/100 leukocytes 2 % 0-10 Automated blood basophils/100 leukocytes 1 % 0-10 Blood neutrophils automated count (number/volume) 6.0 10*3 1.8-7.8 Blood lymphocytes automated count (number/volume) 2.2 10*3 1.0-4.0 Blood monocytes automated count (number/volume) 0. 6 10*3 0.0-1.0 Automated eosinophil count 0.2 10*3/uL 0 .0-0.3 Automated blood basophil count (count/volume) 0.1 10*3/uL 0.0-0.1 Comprehensive metabolic panel - 07/30/19 15:35 Serum or plasma sodium measurement (moles/volume) 143 mmol/L 135-145 Serum or plasma potassium measurement (moles/volume) 3.8 mmol/L 3.6-5.0 Serum or plasma chloride measurement (moles/volume) 103 mmol/L 98-107 Carbon dioxide 27 mmol/L 21-32 Serum or plasma anion gap determination (moles/volume) 13 mmol/L 5-14 Serum or plasma urea nitrogen measurement (mass/volume ) 14 mg/dL 7-18 Serum or plasma creatinine measurement (mass/volume) 0.97 mg/dL 0.60-1.30 Serum or plasma urea nitrogen/creatinine mass ratio 14 NRG Serum or plasma creatinine measurement w ith calculation of estimated glomerular filtration rate > NRG Serum or plasma glucose measurement (mass/volume) 141 mg/dL 70-105 Serum or plasma calcium measurement (mass/volume) 9.4 mg/dL 8.5-10.1 Serum or plasma total bilirubin measurement (mass/volu me) 0.4 mg/dL 0.1-1.0 Serum or plasma alkaline phosphatase anselmo surement (enzymatic activity/volume) 75 U/L 40-136 Serum or plasma aspartate aminotransfera se measurement (enzymatic activity/volume) 19 U/L 5-34 Serum or plasma alanine aminotransferase measurement (enzymatic activity/volume) 11 U/L 0-55 Serum or plasma protein measurement (mass/volume) 6.7 g/dL 6.4-8.2 Serum or plasma albumin measurement (mass/volume) 4.3 g/dL 3.2-4.5 CALCIUM CORRECTED 9.2 mg/dL 8.5-10.1 Lipase - 07/30/19 15:35 Lipase 25 U/L 8-78 Complete blood count (CBC) with automate d white blood cell (WBC) differential - 05/21/20 18:30 Blood leukocytes automated count (number/volume) 11.3 10*3/uL 4.3-11.0 Blood erythrocytes automated count (number/volume) 5.30 10*6/uL 4.35-5.85 Venous blood hemoglobin measurement (mass/volume) 15.3 g/dL 11.5-16.0 Blood hematocrit (volume fraction) 45 % 35-52 Automated erythrocyte mean corpuscular volume 86 [ foz_us] 80-99 Automated erythrocyte mean corpuscular h emoglobin (mass per erythrocyte) 29 pg 25-34 Automated erythrocyte mean corpuscular h emoglobin concentration measurement (mass/volume) 34 g/dL 32-36 Automated erythrocyte distribution width ratio 13. 4 % 10.0- 14.5 Automated blood platelet count (count/volume) 301 10*3/uL 130-400 Automated blood platelet mean volume measurement 10.1 [foz_us] 7.4-10.4 Automated blood neutrophils/100 leukocytes 74 % 42-75 Automated blood lymphocytes/100 leukocytes 18 % 12-44 Blood monocytes/100 leukocytes 5 % 0-12 Automated blood eosinophils/100 leukocytes 2 % 0-10 Automated blood basophils/100 leukocytes 1 % 0-10 Blood neutrophils automated count (number/volume) 8.3 10*3 1.8-7.8 Blood lymphocytes automated count (number/volume) 2.0 10*3 1.0-4.0 Blood monocytes automated count (number/volume) 0. 5 10*3 0.0-1.0 Automated eosinophil count 0.3 10*3/uL 0 .0-0.3 Automated blood basophil count (count/volume) 0.1 10*3/uL 0.0-0.1 Whole blood basic metabolic panel - 05/05 04/23 18:30 Serum or plasma sodium measurement (moles/volume) 142 mmol/L 135-145 Serum or plasma potassium measurement (moles/volume) 4.3 mmol/L 3.6-5.0 Serum or plasma chloride measurement (moles/volume) 103 mmol/L 98-107 Carbon dioxide 24 mmol/L 21-32 Serum or plasma anion gap determination (moles/volume) 15 mmol/L 5-14 Serum or plasma urea nitrogen measurement (mass/volume ) 11 mg/dL 7-18 Serum or plasma creatinine measurement (mass/volume) 0.80 mg/dL 0.60-1.30 Serum or plasma urea nitrogen/creatinine mass ratio 14 NRG Serum or plasma creatinine measurement w ith calculation of estimated glomerular filtration rate > NRG Serum or plasma glucose measurement (mass/volume) 123 mg/dL 70-105 Serum or plasma calcium measurement (mass/volume) 9.5 mg/dL 8.5-10.1 CRP FS - 05/21/20 18:30 CRP FS 0.78 mg/dL <0.50 Encounters ACCT No. Visit Date/Time Discharge Status Pt. Type Provider Facility Loc./Unit Complaint [id number] 05/21/2020 18:16:00 020 19:15:00 DIS Emergency VARGAS MARLON ESCALANTE [facility] ER FS FALL,EAR PAIN,HEADACHE [id number] 07/30/2019 15:04:00 019 16:58:00 DIS Outpatient ROVENSTSENA WYNN DO [facility] ER FS STOMACH PAIN [id number] 05/09/2019 17:52:00 019 21:15:00 DIS Outpatient SISI SEGURA DO [facility] ER FS LOW ABD/ GROIN PAIN, H EADACHE
[2020-05-23] MEDS ORDERED: KETOROLAC 60 MG/2 ML VIAL ONE (08:40)
== END 2020-05-21 19:15 | disposition home or self-care (01) ==
LOC: EDUNIT# 18:14 → ER FS 18:16
DX: G43.909 Migraine, unspecified, not intractable, without status migrainosus (principal); K04.7 Periapical abscess without sinus; Z88.0 Allergy status to penicillin; Z91.041 Radiographic dye allergy status; Z88.1 Allergy status to other antibiotic agents; Z88.6 Allergy status to analgesic agent; Z79.52 Long term (current) use of systemic steroids
CPT/HCPCS: 36415; 70450; 80048; 85025; 86141

== ENCOUNTER 2020-05-23 08:21 | Emergency (ER) | payer MEDICAID ==
[~2020-05-23 08:21] MED LIST changes: +AMOX500C2 PO
[2020-05-23] MEDS ORDERED: KETOROLAC 60 MG/2 ML VIAL IM ONE (08:48)
--- NOTE | 2020-07-11 15:51 | ED EENT ---
History of Present Illness General Stated Complaint: DENTAL PAIN/HEADACHE History of Present Illness Date Seen by Provider: May 23, 2020 Time Seen by Provider: 08:30 Initial Comments 40-year-old female presents with dental pain for 3 days. Patient has a wisdom t ooth needed to be pulled. Patient is currently on an antibiotic and take Tylenol ibuprofen. Patient reports the pain has gotten worse. She denies any fevers chills nausea vomiting shortness of breath. Allergies and Home Medications Allergies Coded Allergies: Iodinated Contrast Media (Verified Allergy, Severe, angioedema, 05/09/19) Penicillins (Verified Allergy, Unknown, 05/09/19) erythromycin base (Verified Adverse Reaction, Intermediate, nausea and vomiting, 05/09/19) NSAIDS (Non-Steroidal Anti-Inflamma (Verified Adverse Reaction, Unknown, GI bleed, 05/09/19) Home Medications Amoxicillin 500 Mg Capsule, 500 MG PO TID Prescribed by: MARLON VARGAS on 05/21/201910 Cholecalciferol (Vitamin D3) 50,000 Unit Capsule, 50,000 UNIT PO weekly, (Reported) Hyoscyamine Sulfate 0.125 Mg Tab.subl, 0.125 MG SL Q6H Prescribed by: SENA ROYAL on 07/30/19 1620 Methylprednisolone 4 Mg Tab.ds.pk, 4 MG PO UD PER DOSE PACK INSTRUCTIONS Prescribed by: SISI SEGURA on 05/09/19 2100 Metronidazole 500 Mg Tablet, 500 MG PO BID Prescribed by: SENA ROYAL on 07/30/19 1634 Patient Home Medication List Home Medication List Reviewed: Yes Review of Systems Review of Systems Constitutional: no symptoms reported Eyes: No Symptoms Reported Ears: No Symptoms Reported Nose: no symptoms reported Mouth: see HPI Respiratory: no symptoms reported Cardiovascular: no symptoms reported Past Fclojnm-Eejwgv-Iqkihn Hx Past Med/Social Hx: Reviewed Nursing Past Med/Soc Hx Patient Social History Type Used: Cigarettes 2nd Hand Smoke Exposure: No Recent Hopitalizations: No Seasonal Allergies Seasonal Allergies: No Past Medical History Surgeries: Yes (right achilles tendon repair) Hysterectomy Respiratory: Yes (Pulmonary AVM) Cardiac: Yes Hypertension Neurological: No [employer]ING [employer]INE [employer] History: Hysterectomy Genitourinary: No Gastrointestinal: Yes (ALIE, bleeding stomach ulcers) Musculoskeletal: No Endocrine: Yes (Patient states she is undergoing a workup for Lupus) HEENT: No Cancer: No Psychosocial: No Integumentary: No Physical Exam Height, Weight, BMI Height: 5'7.00" Weight: 150lbs. oz. 68.744006vc; 26.00 BMI Method:Stated General Appearance: WD/WN, no apparent distress Mouth/Throat: other (left lower wisdom tooth with abnormal eruption with swelling of the gums) Cardiovascular: normal peripheral pulses, regular rate, rhythm Respiratory: lungs clear, normal breath sounds Gastrointestinal: non tender, soft Neurologic/Psychiatric: alert, normal mood/affect, oriented x 3 Skin: normal color, warm/dry Progress/Results/Core Measures Progress Progress Note : Progress Note Patient was given a prescription for a couple tramadol. She is instructed to follow up with a dentist as soon as possible have her wisdom tooth removed. Patient was discharged in stable condition Departure Impression Primary Impression: Pain, dental Disposition: 01 HOME, SELF-CARE Condition: Stable Departure-Patient Inst. Referrals: NO,LOCAL PHYSICIAN (PCP) Primary Care Physician Add. Discharge Instructions: Please follow-up with a dentist as soon as possible MARLON VARGAS DO Jul 11, 2020 15:51
== END 2020-05-23 08:47 | disposition home or self-care (01) ==
LOC: EDUNIT# 08:21 → ER FS 08:22
DX: K08.89 Other specified disorders of teeth and supporting structures (principal); Z91.041 Radiographic dye allergy status; Z88.0 Allergy status to penicillin; Z88.1 Allergy status to other antibiotic agents; Z88.6 Allergy status to analgesic agent; Z79.52 Long term (current) use of systemic steroids